=== PATIENT | male | born 1975 | race Caucasian/White ===

== ENCOUNTER 2016-06-14 10:29 | Emergency (ER) | payer OTHER ==
[~2016-06-14] VITALS: Ht 177.8 cm; Wt 72.5 kg
[~2016-06-14 10:29] MED LIST: DICY1TAB26 PO; METO5TAB PO; OMEP20CA5 PO; PROM25SU8 PO
[2016-06-14 10:32] VITALS: BP 164/93; PULSE 60; RESP 24; O2SAT 100
[2016-06-14 10:43] VITALS: RESP 16; O2SAT 100
[2016-06-14] MEDS ORDERED: SODIUM CHLORIDE 0.9% FLUSH 10 ML FLUSH IV FLUSH PRN (10:45)
[2016-06-14 10:47] VITALS: BP 134/74; PULSE 58; RESP 19; O2SAT 100
[2016-06-14] MEDS ORDERED: OXYC-395 PO (10:47)
[2016-06-14] MEDS ORDERED: KETOROLAC TROMETHAMINE 30 MG/ML (IVP) VIAL IV PUSH ONE (11:00)
[2016-06-14 11:06] LABS: AUTOMATED NEUTROPHIL # 5.7 TH/MM3 (1.8-7.7); BASOPHIL # 0.1 TH/MM3 (0-0.2); BASOPHIL % 0.7 % (0.0-2.0); EOSINOPHIL # 0.2 TH/MM3 (0-0.4); EOSINOPHIL % 2.5 % (0.0-4.0); HEMATOCRIT 48.3 % (39.0-51.0); HEMO FLAGS DIFF FINAL; LYMPH % 30.6 % (9.0-44.0); LYMPHOCYTE # 2.9 TH/MM3 (1.0-4.8); MEAN CELL VOLUME 84.2 FL (80.0-100.0); MEAN CORPUSCULAR HEMOGLOBIN 30.2 PG (27.0-34.0); MEAN CORPUSCULAR HGB CONC 35.9 % (32.0-36.0); MONO % 5.8 % (0.0-8.0); NEUT % 60.4 % (16.0-70.0); PLATELET COUNT 243 TH/MM3 (150-450); RED BLOOD COUNT 5.74 MIL/MM3 (4.50-5.90); RED CELL DISTRIBUTION WIDTH 13.8 % (11.6-17.2); WHITE BLOOD COUNT 9.5 TH/MM3 (4.0-11.0)
[2016-06-14 11:31] LABS: BICARBONATE 24.9 MEQ/L (21.0-32.0); POTASSIUM 3.7 MEQ/L (3.5-5.1)
--- NOTE | 2016-06-14 11:35 | RADRPT ---
EXAM DATE/TIME: 06/14/2016 11:16 [facility] COMPARISON: No previous studies available for comparison. INDICATIONS : Right flank pain for one week. ORAL CONTRAST: No oral contrast ingested. RADIATION DOSE: 13.28 CTDIvol (mGy) MEDICAL HISTORY : Renal calculi. SURGICAL HISTORY : Appendectomy. ENCOUNTER: Initial ACUITY: 1 week PAIN SCALE: 7/10 LOCATION: Right flank TECHNIQUE: Volumetric scanning of the abdomen and pelvis was performed. Using automated exposure control and ad justment of the mA and/or kV according to patient size, radiation dose was kept as low as reasonably achievable to obtain optimal diagnostic quality images. FINDINGS: LOWER LUNGS: The visualized lower lungs are clear. LIVER: Homogeneous density without lesion. There is no dilation of the biliary tree. No calcified gallston es. SPLEEN: Normal size without lesion. PANCREAS: Within normal limits. KIDNEYS: The left kidney is normal in size and shape with single small nonobstructing 2 mm calculus. The right kidney is mildly more prominent than the left with mild surrounding inflammatory change and mild to moderate hydronephrosis with dilatation of the right ureter down to the level of the bladder. There i s a 5 x 3 mm calculus projected at the level of the distal ureter vesicular junction. ADRENAL GLANDS: Within normal limits. VASCULAR: There is no aortic aneurysm. BOWEL/MESENTERY: The stomach, small bowel, and colon demonstrate no acute abnormality. There is no free intraperitone al air or fluid. There is a heterogeneous soft tissue mass in the posterior right and central pelvis which abuts the sacrum. This measures up to 5.1 x 4.6 cm in diameter and contains several tiny calcif ications. This is mildly globular. There is no adjacent bony abnormality. ABDOMINAL WALL: Within normal limits. RETROPERITONEUM: There is no lymphadenopathy. BLADDER: No wall thickening or mass. REPRODUCTIVE: Within normal limits. INGUINAL: There is no lymphadenopathy or hernia. MUSCULOSKELETAL: Within normal limits for patient age. CONCLUSION: 1. Distal right ureteral calculus at the level of the ureterovesicular junction with mild to moderate hydronephrosis. 2. 2 mm nonobstructing left renal calculus. 3. Heterogeneous soft tissue mass in the posterior pelvis which is nonspecific. This is an incidental finding and an outpatient MRI study with and without contrast is recommended for further evaluation. Oscar Blanton MD on June 14, 2016 at 11:26 Board Certified Radiologist. This report was verified electronically.
[2016-06-14 12:00] VITALS: RESP 14
[2016-06-14 12:56] LABS: BACTERIA, URINE OCC /hpf; BLOOD, URINE MOD (NEG); CALCIUM OXALATE CRYSTALS,URINE RARE /hpf; COMMENT (UR) CULT NOT INDICATED; CULTURE IF INDICATED CULT NOT INDICATED; GLUCOSE,URINE NEG (NEG); KETONE, URINE 40 mg/dL (NEG); MUCUS URINE MANY /lpf (OCC); NITRITE,URINE NEG (NEG); PH, URINE 7.5 (5.0-8.5); SQUAMOUS EPITHELIAL CELL URINE 1 /hpf (0-5)
[2016-06-14 12:58] LABS: URINE COLOR LIGHT-RED (YELLW/STRAW)
[2016-06-14] MEDS ORDERED: IBUP-232 PO (13:53)
[2016-06-14] MEDS ORDERED: DILA2TAB2 PO (13:53)
--- NOTE | 2016-06-14 13:53 | PD ---
HPI Chief Complaint: Flank/Kidney Pain Time Seen by Provider: 10:53 Travel History International Travel<30 days: No Contact w/Intl Traveler<30days: No Traveled to known affect area: No History of Present Illness HPI Patient 40-year-old male presents emergency department for complaints of flank pain. Patient states he was diagnosed with a kidney stone an outside facility and his pain is gotten intermittently worse and then better. Patient states he has not followed up with urologist yet because he doesn't know any. He also endorses some nausea with vomiting when the pain is most severe. He's been taking Percocet at home with minimal relief. Denies any chest pain shortness of breath diarrhea constipation. PFSH Past Medical History Blood Disorders: No Cancer: No Cardiovascular Problems: No Diminished Hearing: No Endocrine: No Genitourinary: No Hepatitis: Yes (hepatitis C) Immune Disorder: No Kidney Stones: Yes Musculoskeletal: Yes (CHRONIC BACK PAIN) Neurologic: No Psychiatric: No Reproductive: No Respiratory: No Tetanus Vaccination: > 5 Years Influenza Vaccination: Yes PNEUMOCCOCAL Vaccine (Year): 2 Past Surgical History Appendectomy: Yes (2010) Oral Surgery: Yes (TONSILECTOMY) Tonsillectomy: Yes Other Surgery: Yes (benign abdominal lymph node biopsies) Social History Alcohol Use: Yes (STATES QUIT 6 MONTHS AGO) Tobacco Use: Yes (1 PPD) Substance Use: Yes (MARIJUANA.LORTAB, PERCOCET) Allergies-Medications (Allergen,Severity, Reaction): Coded Allergies: No Known Allergies (Verified , 06/14/16) Reported Meds & Prescriptions Reported Meds & Active Scripts Active Zofran Odt (Ondansetron Odt) 4 Mg Tab 4 Mg SL Q6HR PRN Flomax (Tamsulosin HCl) 0.4 Mg Cap 0.4 Mg PO HS Dilaudid (Hydromorphone HCl) 2 Mg Tab 2 Mg PO Q6H PRN Ibuprofen 600 Mg Tab 600 Mg PO Q6H PRN Reported Oxycodone (Oxycodone HCl) 10 Mg Tab 10 Mg PO Q4H PRN Review of Systems Except as stated in HPI: all other systems reviewed are Neg Physical Exam Narrative GENERAL: Well-developed well-nourished, rolling back and forth on stretcher appears uncomfortable. SKIN: Focused skin assessment warm/dry. HEAD: Atraumatic. Normocephalic. EYES: Pupils equal and round. No scleral icterus. No injection or drainage. ENT: No nasal bleeding or discharge. Mucous membranes pink and moist. NECK: Trachea midline. No JVD. CARDIOVASCULAR: Regular rate and rhythm. No murmur appreciated. RESPIRATORY: No accessory muscle use. Clear to auscultation. Breath sounds equal bilaterally. GASTROINTESTINAL: Abdomen soft, non-tender, nondistended. Hepatic and splenic margins not palpable. CVA tenderness on the right. MUSCULOSKELETAL: No obvious deformities. No clubbing. No cyanosis. No edema. NEUROLOGICAL: Awake and alert. No obvious cranial nerve deficits. Motor grossly within normal limits. Normal speech. PSYCHIATRIC: Appropriate mood and affect; insight and judgment normal. Data Data Last Documented VS Vital Signs Date Time Temp Pulse Resp B/P Pulse Ox O2 Delivery O2 Flow Rate FiO2 06/14/16 12:00 14 06/14/16 10:47 58 134/74 100 Room Air Orders Urinalysis - C+S If Indicated (06/14/16 10:40) Basic Metabolic Panel (Bmp) (06/14/16 10:40) Complete Blood Count With Diff (06/14/16 10:40) Iv Access Insert/Monitor (06/14/16 10:40) Ecg Monitoring (06/14/16 10:40) Oximetry (06/14/16 10:40) Sodium Chloride 0.9% Flush (Ns Flush) (06/14/16 10:45) Ct Abd/Pel W/O Iv Contrast (06/14/16 ) Ketorolac Inj (Toradol Inj) (06/14/16 11:00) Cath For Specimen (06/14/16 12:15) Sodium Chlor 0.9% 1000 Ml Inj (Ns 1000 M (06/14/16 14:00) Labs Laboratory Tests Test 06/14/16 06/14/16 10:45 12:30 White Blood Count 9.5 TH/MM3 Red Blood Count 5.74 MIL/MM3 Hemoglobin 17.3 GM/DL Hematocrit 48.3 % Mean Corpuscular Volume 84.2 FL Mean Corpuscular Hemoglobin 30.2 PG Mean Corpuscular Hemoglobin 35.9 % Concent Red Cell Distribution Width 13.8 % Platelet Count 243 TH/MM3 Mean Platelet Volume 7.8 FL Neutrophils (%) (Auto) 60.4 % Lymphocytes (%) (Auto) 30.6 % Monocytes (%) (Auto) 5.8 % Eosinophils (%) (Auto) 2.5 % Basophils (%) (Auto) 0.7 % Neutrophils # (Auto) 5.7 TH/MM3 Lymphocytes # (Auto) 2.9 TH/MM3 Monocytes # (Auto) 0.5 TH/MM3 Eosinophils # (Auto) 0.2 TH/MM3 Basophils # (Auto) 0.1 TH/MM3 CBC Comment DIFF FINAL Differential Comment Sodium Level 140 MEQ/L Potassium Level 3.7 MEQ/L Chloride Level 103 MEQ/L Carbon Dioxide Level 24.9 MEQ/L Anion Gap 12 MEQ/L Blood Urea Nitrogen 15 MG/DL Creatinine 1.03 MG/DL Estimat Glomerular Filtration 80 ML/MIN Rate Random Glucose 97 MG/DL Calcium Level 9.7 MG/DL Urine Color LIGHT-RED Urine Turbidity CLOUDY Urine pH 7.5 Urine Specific [place] 1.030 Urine Protein 100 mg/dL Urine Glucose (UA) NEG mg/dL Urine Ketones 40 mg/dL Urine Occult Blood MOD Urine Nitrite NEG Urine Bilirubin NEG Urine Urobilinogen 4.0 MG/DL Urine Leukocyte Esterase TRACE Urine RBC 38 /hpf Urine WBC 5 /hpf Urine Squamous Epithelial 1 /hpf Cells Urine Calcium Oxalate Crystals RARE /hpf Urine Amorphous Sediment RARE Urine Bacteria OCC /hpf Urine Mucus MANY /lpf Microscopic Urinalysis Comment CULT NOT INDICATED MDM Medical Decision Making Medical Screen Exam Complete: Yes Emergency Medical Condition: Yes Differential Diagnosis Kidney stone, obstructive uropathy, urinary tract infection, acute kidney injury. Narrative Course Patient is a 40-year-old male presents with right flank pain. He has a history of kidney stone diagnosed and outside facility. Review of his E Foor shows that he's had 2 scripts this month already for Percocet. Patient was given Toradol in the emergency department and on revisit is much more comfortable appearance. He was discussed with Dr. Green after his CAT scan resulted: Last 24 hours Impressions Abdomen/Pelvis CT 06/14/16 0000 Signed Impressions: Service Date/Time: Tuesday, June 14, 2016 11:16 - CONCLUSION: 1. Distal right ureteral calculus at the level of the ureterovesicular junction with mild to moderate hydronephrosis. 2. 2 mm nonobstructing left renal calculus. 3. Heterogeneous soft tissue mass in the posterior pelvis which is nonspecific. This is an incidental finding and an outpatient MRI study with and without contrast is recommended for further evaluation. MD Dr. Norma Smart suggested some stronger pain medicine be used to the patient and that he follow-up in the office. He is much workup will this time. He does request some fluids as he thinks is some dehydration. He was given a liter of normal saline, he appears well and in no distress at this time in stable for discharge. I discussed results with the patient the recommendations and need for follow-up the primary care physician, the urologist as well as returned ED criteria. Diagnosis Primary Impression: Kidney stone Referrals: Roddy Green MD Med/Other Pt SpecificInfo: Prescription(s) given Scripts Ondansetron Odt (Zofran Odt)4 Mg Tab4 Mg SL Q6HR PRN (Nausea/Vomiting) #30 TAB Ref 0 Prov:Elvis Guerra MD 06/14/16 Tamsulosin (Flomax)0.4 Mg Cap0.4 Mg PO HS #30 CAP Ref 0 Prov:Elvis Guerra MD 06/14/16 Hydromorphone (Dilaudid)2 Mg Tab2 Mg PO Q6H PRN (PAIN SCALE 6 TO 10) #8 TAB Ref 0 Prov:Elvis Guerra MD 06/14/16 Ibuprofen 600 Mg [id number] Mg PO Q6H PRN (PAIN SCALE 1 TO 7) #30 TAB Ref 0 Prov:Elvis Guerra MD 06/14/16 Disposition: 01 DISCHARGE HOME Condition: Stable Elvis Guerra MD June 14, 2016 13:53
[2016-06-14] MEDS ORDERED: TAMS5CAP PO (13:58)
[2016-06-14] MEDS ORDERED: ZOFR4TAB3 SL (13:58)
[2016-06-14] MEDS ORDERED: SODIUM CHLOR 0.9% 1000 ML INJ 1,000 ML IV ONE (14:00)
== END 2016-06-14 15:36 | disposition home or self-care (01) ==
LOC: NEPC 10:29
DX: N20.2 Calculus of kidney with calculus of ureter (principal); N13.2 Hydronephrosis with renal and ureteral calculous obstruction; F17.210 Nicotine dependence, cigarettes, uncomplicated; F12.10 Cannabis abuse, uncomplicated
CPT/HCPCS: 74176; 80048; 81001; 85025; 96361; 96374; 99284; J1885; J7030

== ENCOUNTER 2016-06-15 12:38 | Emergency (ER) | payer OTHER ==
[~2016-06-15 12:38] MED LIST changes: -DICY1TAB26 PO; +DILA2TAB2 PO; +IBUP-232 PO; -METO5TAB PO; -OMEP20CA5 PO; +OXYC-395 PO; -PROM25SU8 PO; +TAMS5CAP PO; +ZOFR4TAB3 SL
[2016-06-15 12:46] VITALS: BP 126/77; PULSE 106; RESP 15; O2SAT 95
[2016-06-15] MEDS ORDERED: SODIUM CHLOR 0.9% 1000 ML INJ 1,000 ML IV SCH (12:46)
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
--- NOTE | 2016-06-15 13:15 | RADRPT ---
EXAM DATE/TIME: 06/15/2016 13:07 [facility] COMPARISON: No previous studies available for comparison. INDICATIONS : Chest pain. MEDICAL HISTORY : None. SURGICAL HISTORY : None. ENCOUNTER: Initial ACUITY: 1 day PAIN SCORE: Non-responsive. LOCATION: Bilateral chest FINDINGS: 2 AP erect views of the chest demonstrates the lungs to be symmetrically aerated without evidence of mass, infiltrate or effusion. The cardiomediastinal contours are unremarkable. Osseous structures a re intact. CONCLUSION: No acute disease. Oscar Blanton MD on June 15, 2016 at 13:13 Board Certified Radiologist. This report was verified electronically.
[2016-06-15 13:31] LABS: BASOPHIL % 0.6 % (0.0-2.0); EOSINOPHIL # 0.1 TH/MM3 (0-0.4); EOSINOPHIL % 1.8 % (0.0-4.0); HEMATOCRIT 44.7 % (39.0-51.0); HEMO FLAGS DIFF FINAL; LYMPH % 28.6 % (9.0-44.0); LYMPHOCYTE # 2.3 TH/MM3 (1.0-4.8); MEAN CELL VOLUME 86.4 FL (80.0-100.0); MEAN CORPUSCULAR HEMOGLOBIN 29.5 PG (27.0-34.0); MEAN CORPUSCULAR HGB CONC 34.2 % (32.0-36.0); MONO % 6.1 % (0.0-8.0); NEUT % 62.9 % (16.0-70.0); PLATELET COUNT 193 TH/MM3 (150-450); RED BLOOD COUNT 5.17 MIL/MM3 (4.50-5.90); RED CELL DISTRIBUTION WIDTH 13.4 % (11.6-17.2); WHITE BLOOD COUNT 7.9 TH/MM3 (4.0-11.0)
[2016-06-15 13:56] LABS: ACETAMINOPHEN LESS THAN 2.0 MCG/ML (10.0-30.0); ANION GAP 7 MEQ/L (5-15); BICARBONATE 28.3 MEQ/L (21.0-32.0); BLOOD UREA NITROGEN 12 MG/DL (7-18); CHLORIDE 107 MEQ/L (98-107); GLOMERULAR FILTRATION RATE 93 ML/MIN (>89); POTASSIUM 3.6 MEQ/L (3.5-5.1); SODIUM (NA) 142 MEQ/L (136-145)
[2016-06-15 15:25] LABS: AMPHETAMINE, URINE NEG (NEG); BARBITURATES, URINE NEG (NEG); COCAINE, URINE NEG (NEG)
[2016-06-15 15:30] VITALS: PULSE 74; RESP 14; O2SAT 97
[2016-06-15 17:08] VITALS: BP 109/63
--- NOTE | 2016-06-16 11:24 | EKG ---
Date Performed: 06/15/2016 Time Performed: 13:53:23 PTAGE: 40 years EKG: Sinus rhythm WITH OCCASIONAL SUPRAVENTRICULAR PREMATURE COMPLEXES INCOMPLETE RIGHT BUNDLE BRANCH BLOCK NONSPECIFI C ST ELEVATION BORDERLINE ECG PREVIOUS TRACING : 04/25/1998 07.32 DOCTOR: Pedro Mchugh Interpretating Date/Time 06/16/2016 11:19:38
== END 2016-06-15 17:51 | disposition home or self-care (01) ==
LOC: NEPE 12:38
DX: T40.601A Poisoning by unspecified narcotics, accidental (unintentional), initial encounter (principal); I45.10 Unspecified right bundle-branch block; N20.0 Calculus of kidney; V47.5XXA Car driver injured in collision with fixed or stationary object in traffic accident, initial encounter
CPT/HCPCS: 71010; 80048; 80307; 83735; 85025; 93005; 99284; J7030

== ENCOUNTER 2016-07-13 10:33 | Emergency (ER) | payer OTHER ==
[~2016-07-13] VITALS: Ht 180.3 cm; Wt 73.0 kg
[2016-07-13 10:37] VITALS: BP 157/99; PULSE 140; RESP 16; TEMP 99.5; O2SAT 95
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
[2016-07-13] MEDS ORDERED: SODIUM CHLOR 0.9% 1000 ML INJ 1,000 ML IV ONE (10:45)
[2016-07-13 11:21] VITALS: BP 123/73; PULSE 118; RESP 16; O2SAT 97
--- NOTE | 2016-07-14 11:22 | EKG ---
Date Performed: 07/13/2016 Time Performed: 10:30:02 PTAGE: 40 years EKG: Sinus tachycardia. Possible left atrial abnormality Rightward axis Incomplete RBBB Borderli ne ECG Compared to prior tracing no significant change PREVIOUS TRACING : 06/15/2016 13.53 DOCTOR: Lucio Crar Interpretating Date/Time 07/14/2016 11:19:02
== END 2016-07-13 11:39 | disposition home or self-care (01) ==
LOC: PHED 10:33
DX: R00.0 Tachycardia, unspecified (principal); R94.31 Abnormal electrocardiogram [ECG] [EKG]; F17.200 Nicotine dependence, unspecified, uncomplicated; Z87.39 Personal history of other diseases of the musculoskeletal system and connective tissue; Z86.19 Personal history of other infectious and parasitic diseases; Z87.442 Personal history of urinary calculi; V89.2XXA Person injured in unspecified motor-vehicle accident, traffic, initial encounter; Y92.410 Unspecified street and highway as the place of occurrence of the external cause
CPT/HCPCS: 93005; 96360; 99284; J7030